=== PATIENT | male | born 1985 | race African-American/Black ===

== ENCOUNTER 2017-01-11 15:27 | Emergency (ER) | payer SELFPAY ==
[~2017-01-11] VITALS: Ht 180.3 cm; Wt 129.0 kg
[~2017-01-11 15:27] MED LIST: IBUP800T23 PO; METH750T2 PO; Z.0.NO CURRENT MEDS
[2017-01-11 15:29] VITALS: BP 179/77; PULSE 83; RESP 20; TEMP 97.9; O2SAT 95
--- NOTE | 2017-01-11 17:21 | PD ---
HPI Chief Complaint: Back/ Neck Pain or Injury Time Seen by Provider: 17:20 Travel History International Travel<30 days: No Contact w/Intl Traveler<30days: No Traveled to known affect area: No History of Present Illness HPI 31-year-old male presents to emergency department for evaluation of low back pain after a chair broke and he landed on his lower back. Patient reports 10 out of 10 low back pain. Pain does not radiate anywhere it is isolated from his mid lower back and well in his neck. No focal deficits or weakness. No saddle paresthesia or loss of bowel or bladder. Denies any other symptoms at this time. PFSH Past Medical History Medical History: Denies Significant Hx Social History Alcohol Use: Yes Tobacco Use: Yes Substance Use: No Allergies-Medications (Allergen,Severity, Reaction): Coded Allergies: No Known Allergies (Verified , 01/11/17) Reported Meds & Prescriptions Reported Meds & Active Scripts Active Robaxin (Methocarbamol) 500 Mg Tab 500 Mg PO QID PRN Ibuprofen 800 Mg Tab 800 Mg PO Q8H PRN Methocarbamol 750 Mg Tab 750 Mg PO TID PRN Ibuprofen 800 Mg Tab 800 Mg PO TID PRN Reported No Current Meds (Miscellaneous Medication) Misc Review of Systems Except as stated in HPI: all other systems reviewed are Neg Physical Exam Narrative GENERAL: Well-nourished, well-developed patient, ambulatory with a non-antalgic gait, in no acute distress SKIN: Warm and dry. HEAD: Normocephalic. Atraumatic. EYES: No scleral icterus. No injection or drainage. NECK: Supple, trachea midline. No JVD or lymphadenopathy. Spine tenderness. Tenderness with palpation of the trapezius musculature. CARDIOVASCULAR: Regular rate and rhythm without murmurs, gallops, or rubs. RESPIRATORY: Breath sounds equal bilaterally. No accessory muscle use. GASTROINTESTINAL: Abdomen soft, non-tender, nondistended. MUSCULOSKELETAL: No cyanosis, or edema. BACK: No midline tenderness. Tenderness elicited palpation lumbar paraspinous musculature. No CVA tenderness. Data Data Last Documented VS Vital Signs Date Time Temp Pulse Resp B/P Pulse Ox O2 Delivery O2 Flow Rate FiO2 01/11/17 15:29 97.9 83 20 179/77 95 Room Air Orders Spine, Lumbar - Ltd (Ap & Lat) (01/11/17 ) Spine, Cervical - Ltd (Ap&Lat) (01/11/17 ) Ketorolac Inj (Toradol Inj) (01/11/17 17:30) Orphenadrine Inj (Norflex Inj) (01/11/17 17:30) MDM Medical Decision Making Medical Screen Exam Complete: Yes Emergency Medical Condition: Yes Medical Record Reviewed: Yes Differential Diagnosis Muscle strain versus spasm versus discogenic pain versus radiculopathy versus fracture Narrative Course 31-year-old male presents to the emergency department for evaluation of low back pain and neck pain after falling out of a chair. Neuro exam is nonfocal. X-ray imaging of the cervical spine and lumbar spine are without acute bony abnormality. Patient is provided pain control. She is discharged home to follow-up with primary care provider. He agrees to return immediately with any acute worsening of symptoms Diagnosis Primary Impression: Acute low back pain Qualified Code: M54.5 - Acute bilateral low back pain without sciatica Additional Impression: Cervical strain, acute Qualified Code: S16.1XXA - Cervical strain, acute, initial encounter Referrals: Primary Care Physician Patient Instructions: Acute Low Back Pain (ED), Cervical Neck Strain Exercises (GEN), General Instructions Additional Instructions: Ice and/or warm moist heat may help to alleviate symptoms Follow-up with her primary care provider Return immediately to the emergency department with any acute worsening of symptoms Med/Other Pt SpecificInfo: Prescription(s) given Scripts Methocarbamol (Robaxin)500 Mg [id number] Mg PO QID PRN (MUSCLE SPASM) #20 TAB Ref 0 Prov:Saima Machado 01/11/17 Ibuprofen 800 Mg [id number] Mg PO Q8H PRN (Pain/Inflammation) #30 TAB Ref 0 Prov:Saima Machado 01/11/17 Disposition: 01 DISCHARGE HOME Condition: Stable Saima Machado Jan 11, 2017 17:21
[2017-01-11] MEDS ORDERED: KETOROLAC TROMETHAMINE 60 MG/2 ML (IM) VIAL IM ONE (17:30)
[2017-01-11] MEDS ORDERED: ORPHENADRINE INJ 60 MG/2 ML AMP IM ONE (17:30)
--- NOTE | 2017-01-11 18:13 | RADRPT ---
EXAM DATE/TIME: 01/11/2017 17:49 [facility] COMPARISON: No previous studies available for comparison. INDICATIONS : Neck pain after fall. MEDICAL HISTORY : Prior c6 c7 injury. SURGICAL HISTORY : None. ENCOUNTER: Initial ACUITY: 1 day PAIN SCORE: 10/10 LOCATION: Bilateral neck. FINDINGS: Two projection examination was performed. There is normal alignment and curvature of the vertebral b odies down to the level of C7. No evidence of fracture or subluxation. Vertebral body height is fito ntained. The disc spaces are maintained. The prevertebral soft tissues are of normal thickness. Th e atlanto-axial articulation is intact. CONCLUSION: Within normal limits. No fracture or subluxation of the cervical spine. Jon Tariq MD on January 11, 2017 at 18:10 Board Certified Radiologist. This report was verified electronically.
--- NOTE | 2017-01-11 18:14 | RADRPT ---
EXAM DATE/TIME: 01/11/2017 17:54 [facility] COMPARISON: No previous studies available for comparison. INDICATIONS : Lower back pain after fall. MEDICAL HISTORY : None. SURGICAL HISTORY : None. ENCOUNTER: Initial ACUITY: 1 day PAIN SCORE: 10/10 LOCATION: Left lower back. FINDINGS: Lumbar spinal alignment is normal. Vertebral bodies have normal height. There slight disc space narro wing at L3/L4, L4/L5 and L5/S1. 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 CONCLUSION: Minimal degenerative changes. No fracture or subluxation of the lumbar spine. Jon Tariq MD on January 11, 2017 at 18:12 Board Certified Radiologist. This report was verified electronically.
[2017-01-11] MEDS ORDERED: IBUP800T23 PO (18:25)
[2017-01-11] MEDS ORDERED: ROBA500T PO (18:25)
== END 2017-01-11 18:33 | disposition home or self-care (01) ==
LOC: NEPB 15:27
DX: S16.1XXA Strain of muscle, fascia and tendon at neck level, initial encounter (principal); M54.5 Low back pain; Z72.0 Tobacco use; W07.XXXA Fall from chair, initial encounter; Y93.9 Activity, unspecified; Y92.9 Unspecified place or not applicable; Y99.9 Unspecified external cause status
CPT/HCPCS: 72040; 72100; 96372; 99283; J1885; J2360